=== PATIENT | female | born 2000 | race Two or more races ===

== ENCOUNTER 2020-01-14 04:50 | Emergency (ER) | payer OTHER ==
[~2020-01-14] VITALS: Ht 157.5 cm; Wt 54.4 kg
[2020-01-14] MEDS ORDERED: ZITHROMAX TRI-500 MG PO (04:57)
[2020-01-14] MEDS ORDERED: PEPCID20 MG PO (07:17)
== END 2020-01-14 07:33 | disposition home or self-care (01) ==
LOC: ER 04:50
DX: K29.70 Gastritis, unspecified, without bleeding (principal)